=== PATIENT | female | born 1995 | race Caucasian/White ===

== ENCOUNTER 2019-01-18 21:33 | Emergency (ER) | payer OTHER ==
[~2019-01-18] VITALS: Ht 167.6 cm; Wt 109.1 kg
[2019-01-18] MEDS ORDERED: PRE-NATAL PO (21:53)
[2019-01-19] MEDS ORDERED: ORPHENADRINE100 MG PO (00:04)
[2019-01-19] MEDS ORDERED: IBUPROFEN600 MG PO (00:04)
[2019-01-19 00:15] VITALS: BP 132/84
== END 2019-01-19 00:23 | disposition home or self-care (01) | DRG 563 ==
LOC: ED 21:33
DX: S39.012A Strain of muscle, fascia and tendon of lower back, initial encounter (principal); W10.9XXA Fall (on) (from) unspecified stairs and steps, initial encounter; Y92.009 Unspecified place in unspecified non-institutional (private) residence as the place of occurrence of the external cause; M54.9 Dorsalgia, unspecified; G89.29 Other chronic pain